=== PATIENT | male | born 1980 | race African-American/Black ===

== ENCOUNTER 2021-05-24 16:50 | Emergency (ER) | payer OTHER ==
[~2021-05-24] VITALS: Ht 180.3 cm; Wt 113.4 kg
[2021-05-24 19:52] LABS: ABSOLUTE NEUTROPHILS 3.5 thou/uL (1.4-8.2); BASOPHILS 0.6 % (0.0-2.0); EOSINOPHILS 0.3 % (0.0-3.0); HEMATOCRIT 45.7 % (42.0-52.0); HEMOGLOBIN 15.4 gm/dL (14.0-18.0); LYMPHOCYTES 23.9 % (24.0-44.0); MCH 28.2 pg (26.0-34.0); MCHC 33.6 g/dL (28.0-37.0); MCV 83.9 fL (80.0-100.0); PLATELET COUNT 141 thou/uL (150-400); POLYS 69.2 % (36.0-66.0); RBC 5.45 mil/uL (4.50-6.00); RDW 14.2 % (10.5-14.5); WBC 5.1 thou/uL (4.0-11.0)
[2021-05-24 20:01] LABS: CALCIUM 9.4 mg/dL (8.5-10.1); CREATININE 1.2 mg/dL (0.7-1.3); POTASSIUM 4.1 mmol/L (3.5-5.1)
[2021-05-24] MEDS ORDERED: PROAIR HFA8.5 GM INH (20:05)
[2021-05-24] MEDS ORDERED: NAPROSYN500 MG PO (20:05)
[2021-05-24 20:51] VITALS: BP 136/95
--- NOTE | 2021-05-25 07:17 | EKG ---
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 05/25/21 0717 00 1701 Brant Bentley MD, FACC /EPI
== END 2021-05-24 21:15 | disposition home or self-care (01) ==
LOC: ER 16:50
PROVIDERS: Emergency Medicine
DX: U07.1 COVID-19 (principal); R11.2 Nausea with vomiting, unspecified